=== PATIENT | female | born 1985 | race Caucasian/White ===

== ENCOUNTER 2022-11-04 05:48 | Outpatient (CLI) | payer OTHER ==
[~2022-11-04] VITALS: Ht 175.3 cm; Wt 74.1 kg
[2022-11-05] MEDS ORDERED: MINO100C5 PO (12:18)
[2022-11-10] MEDS ORDERED: SIME80TA16 PO (07:19)
[2022-11-10] MEDS ORDERED: HYDR-34 PO (07:19)
[2022-11-10] MEDS ORDERED: DOCU100C37 PO (07:19)
[2022-11-10] MEDS ORDERED: IBUP-844 PO (07:19)
== END 2022-11-05 12:36 | disposition home or self-care (01) ==
LOC: PREOP 05:48
PROVIDERS: ATTEND Obstetrics & Gynecology
DX: Z01.818 Encounter for other preprocedural examination (principal)

== ENCOUNTER 2022-11-10 06:01 | Day surgery (SDC) | payer OTHER ==
[2022-11-10] VITALS (10 sets, daily range): BP systolic 117–137; BP diastolic 69–81
[~2022-11-10] VITALS: Ht 175.2 cm; Wt 74.1 kg
[~2022-11-10 06:01] MED LIST: MINO100C5 PO
[2022-11-10] MEDS ORDERED: metroNIDAZOLE 500MG/100ML IVPB 100 ML IV ONE (06:45)
[2022-11-10] MEDS ORDERED: LACTATED RINGERS 1,000 ML IV PRN (06:45)
[2022-11-10] MEDS ORDERED: ceFAZolin INJECTION 2,000 MG in NS (IVPB) 50 ML IV ONE (06:45)
[2022-11-10] MEDS ORDERED: BUPIVACAINE 0.25% 30 ML (SENSORCAINE) VIAL ONE (06:55)
[2022-11-10 06:56] LABS: BASOPHILS % (AUTO) 1 % (0-10); EOSINOPHILS # (AUTO) 0.1 10^3/uL (0.0-0.3); EOSINOPHILS % (AUTO) 3 % (0-10); HEMATOCRIT 41 % (35-52); HEMOGLOBIN 14.5 g/dL (11.5-16.0); LYMPHOCYTES # (AUTO) 1.3 10^3/uL (1.0-4.0); LYMPHOCYTES % (AUTO) 26 % (12-44); MEAN CORPUSCULAR HEMOGLOBIN 32 pg (25-34); MEAN CORPUSCULAR HGB CONC 36 g/dL (32-36); MEAN CORPUSCULAR VOLUME 91 fL (80-99); MEAN PLATELET VOLUME 10.6 fL (9.0-12.2); MONOCYTES # (AUTO) 0.4 10^3/uL (0.0-1.0); MONOCYTES % (AUTO) 9 % (0-12); NEUTROPHILS # (AUTO) 3.1 10^3/uL (1.8-7.8); NEUTROPHILS % (AUTO) 62 % (42-75); PLATELET COUNT 160 10^3/uL (130-400)
--- NOTE | 2022-11-10 07:13 | Progress Note-Pre Operative ---
Pre-Operative Progress Note Date of Available H&P: Nov 10, 2022 Date H&P Reviewed: Nov 10, 2022 Time H&P Reviewed: 07:05 History & Physical: H&P Reviewed, Patient Examed, No changes noted Pre-Operative Diagnosis: Recurrent cervical dysplasia ANIBAL PULIDO DO Nov 10, 2022 07:13
[2022-11-10] MEDS ORDERED: HYDROcodone/APAP 7.5 MG/325 MG (LORTAB, LORCET PLUS) TABLET PO PRN (07:15)
[2022-11-10] MEDS ORDERED: BENZOCAINE LOZENGES 1 EACH LOZENGE MM PRN (07:15)
[2022-11-10] MEDS ORDERED: ZOLPIDEM 5 MG (AMBIEN) TAB PO PRN (07:15)
[2022-11-10] MEDS ORDERED: ANTACID SUSP 30 ML UDC (MYLANTA) PO PRN (07:15)
[2022-11-10] MEDS ORDERED: SIMETHICONE 80 MG (MYLICON) CHEW PO PRN (07:15)
[2022-11-10] MEDS ORDERED: KETOROLAC 30 MG/ML VIAL IVP PRN (07:15)
[2022-11-10] MEDS ORDERED: ONDANSETRON 4 MG/2 ML (SDV) Z0FRAN IV PRN (07:15)
[2022-11-10] MEDS ORDERED: DOCUSATE SODIUM 100 MG (COLACE) CAP PO PRN (07:15)
--- NOTE | 2022-11-10 07:16 | Discharge Inst-Women's Service ---
Discharge Inst-Women's Serv Depart Medication/Instructions New, Converted or Re-Newed RX: Transmitted to Pharmacy Problems Reviewed?: Yes Consults/Follow Up Additional Follow Up: Yes Orders/Referrals Dr. Roque in 7-10 days and in 8 weeks Activity Activity: Activity as Tolerated Driving Instructions: No Driving for 1 Week NO SMOKING: NO SMOKING Nothing Inside Vagina: No Douching, No [place], No Tampons Diet Discharge Diet: No Restrictions Symptoms to Report to : Bleeding Excessive, Pain Increased, Fever Over 101 Degrees F, Vaginal Bleeding Increase, Questions/Concerns For Any Problems or Questions: Contact Your Physician Skin/Wound Care Infection Signs and Symptoms: Increased Redness, Foul Odor of Wound, Increased Drainage, Skin Itchy or Has a Rash, Increased Swelling, Temperature Above 101 F Operative Area Clean and Dry: Keep Incision Clean/Dry Stitches/Ian/Dermabond: Dermabond, Care of Stitches Bathing Instructions: ANIBAL Tejada DO Nov 10, 2022 07:16
[2022-11-10] MEDS ORDERED: SIME80TA16 PO (07:19)
[2022-11-10] MEDS ORDERED: IBUP-844 PO (07:19)
[2022-11-10] MEDS ORDERED: DOCU100C37 PO (07:19)
[2022-11-10] MEDS ORDERED: HYDR-34 PO (07:19)
[2022-11-10] MEDS ORDERED: fentaNYL INJ 100 MCG/2 ML AMP ONE ×2 (07:20→08:19)
[2022-11-10] MEDS ORDERED: MIDAZOLAM 2 MG/2 ML (VERSED) VIAL ONE (07:20)
[2022-11-10] MEDS ORDERED: BUPIVACAINE 0.25% 30 ML (SENSORCAINE) VIAL INJ ONE (07:52)
[2022-11-10] MEDS: LACTATED RINGERS 1,000 ML IV SCH ×2 (08:10→11:25)
[2022-11-10] MEDS ORDERED: ONDANSETRON 4 MG/2 ML (SDV) Z0FRAN ONE (08:17)
[2022-11-10] MEDS ORDERED: proPOfol 200 MG/20 ML (DIPRIVAN) VIAL IV ONE (08:17)
[2022-11-10] MEDS ORDERED: SEVOFLURANE (ULTANE) 15 ML INHAL SOLN ONE ×2 (08:17→09:00)
[2022-11-10] MEDS ORDERED: ROCURONIUM 10 MG/ML 5 ML SYRINGE IV ONE (08:17)
[2022-11-10] MEDS ORDERED: LIDOCAINE PF 2% 5 ML (XYLOCAINE) VIAL ONE (08:17)
[2022-11-10] MEDS ORDERED: GLYCOPYRROLATE 0.2 MG/ML (ROBINUL) 2 ML VIAL ONE (08:18)
[2022-11-10] MEDS ORDERED: NEOSTIGMINE (BLOXIVERZ ) 1 MG/1ML 10 ML VIAL ONE (08:18)
[2022-11-10] MEDS ORDERED: ONDANSETRON 4 MG/2 ML (SDV) Z0FRAN IVP PRN (09:00)
[2022-11-10] MEDS ORDERED: HYDROmorphone 2 MG/ML VIAL (DILAUDID) IV ONE (09:00)
[2022-11-10] MEDS ORDERED: HYDROmorphone 2 MG/ML VIAL (DILAUDID) ONE (09:02)
[2022-11-10] MEDS: MEPERIDINE (DEMEROL) INJ 50 MG/ML ONE ×2 (09:09→09:10)
[2022-11-10] MEDS ORDERED: MEPERIDINE (DEMEROL) INJ 50 MG/ML IVP ONE (09:15)
--- NOTE | 2022-11-10 12:26 | OPERATIVE REPORT ---
DATE OF SERVICE: 11/10/2022 PREOPERATIVE DIAGNOSIS: A 37-year-old female with recurrent cervical dysplasia. POSTOPERATIVE DIAGNOSIS: A 37-year-old female with recurrent cervical dysplasia. PROCEDURES PERFORMED: Robotic-assisted total laparoscopic hysterectomy with bilateral salpingectomy. SURGEON: Alexis Pulido DO. PEDAL ASSEMBLER: Madhuri Lerma DNP, who was necessary for manipulation and retraction throughout the procedure. ANESTHESIA: General endotracheal. ESTIMATED BLOOD LOSS: Minimal. URINE OUTPUT: 400 mL clear urine at the end of procedure. FLUIDS: 1200 mL of lactated Ringer solution. FINDINGS: Grossly normal-appearing external female genitalia. Grossly normal-appearing cervix, uterus, bilateral fallopian tubes and ovaries. SPECIMEN SENT: Uterus and bilateral fallopian tubes. INDICATIONS FOR PROCEDURE: This 37-year-old female was a patient, who had sought care in my office for issues with recurrent cervical dysplasia. Throughout the year, she has undergone multiple colposcopies. She does not desire further childbearing and is becoming more and more anxious about examinations and repeat colposcopy. Given her family history of cancer, she wished to proceed with hysterectomy. The risks of the procedure were discussed with the patient versus alternatives of continued conservative management. After all of her questions were answered. Consent was obtained preoperatively. DESCRIPTION OF PROCEDURE: The patient was taken to the operating room. Once in the operating room, anesthesia was found to be adequate. She was placed in a dorsal lithotomy position, prepped and draped in a normal sterile fashion. A timeout was performed. Simeon catheter was placed using sterile technique. A weighted speculum was inserted in the patient's vagina, right angle retractor was used to visualize the cervix, grasped at 12 o'clock position using a long Allis clamp. I then placed an 0 Vicryl suture at the anterior lip of the cervix and used my retraction. The Allis clamp was removed. I then selected an 8 cm BARBARA uterine manipulator tip and a 3.5 cm colpotomy ring. I advanced the manipulator tip into the uterus, where I deployed the balloon. I advanced the colpotomy ring around the vaginal fornix, after which, excellent manipulation was appreciated on bimanual examination. I then performed a change of glove after I removed all the instruments from the patient's vagina and took my attention to the abdomen, where subcostally at the midclavicular line on the left side, I introduced a Veress needle to ensure proper placement, was confirmed using saline drop test with an opening pressure of 5 mmHg. I proceeded with CO2 insufflation using CO2 insufflation to maximum pressure of 15 mmHg, at which point I infiltrated the infraumbilical area using 0.25% Marcaine to make an 8 mm incision with a knife and correct blunt laparoscopic da Ramona camera trocar through this incision. Correct placement was confirmed using the da Ramona laparoscope. There was no evidence of damage from my entry site. A brief scan of the upper abdomen anatomy appeared to be grossly normal. I removed the Veress needle from its site and there was no active bleeding noted or evidence of damage upon the Veress entry site. I then had the patient placed in a steep Trendelenburg, where I was able to visualize all my pelvic anatomy as defined in my findings above. I placed two lateral trocars. These were both 8 mm trocars were approximately 8 cm lateral to my infraumbilical trocar. Once both of these trocars were placed under direct visualization of laparoscope, I brought in the da Ramona robot and docked in the appropriate fashion placing the SynchroSeal device in the left hand and monopolar chriss in the right hand to perform the following dissection bilaterally, staring at the uteroovarian ligament, I sealed and transected using SynchroSeal device. I then created a window in the mesosalpinx, took this laterally down the mesosalpinx, obtained fallopian tube from the surrounding blood supply. We then grasped the round ligament, which I sealed and transected using the SynchroSeal device. I then grasped the entire broad ligament, which was sealed and transected using a SynchroSeal device. I did this all the way down to the level of the lower uterine segment, at which point, I the anterior and posterior leaflets of the broad ligament; anterior leaf was taken down to the anterior vaginal fornix. Posterior leaf was taken down the posterior vaginal fornix. This allowed me to skeletonize the uterine vessels laterally, which I sealed and transected using a SynchroSeal device. I then created a colpotomy at 12 o'clock position using monopolar chriss and took this circumferentially around the vaginal fornix amputating the cervix away from the vagina and the entire specimen was removed through the vagina. I then closed the vaginal cuff using 2-0 V-Loc in a running fashion, after which, there was no active bleeding noted from a dissection plane. I then undocked the da Ramona robot and proceeded with the remainder of the case laparoscopically. I then copiously irrigated the pelvis with normal saline. Once again, there was no active bleeding noted from any of my dissection planes. I then placed Surgiflo hemostatic agent over all my planes of dissection. I had the patient taken out of steep Trendelenburg, where I removed the lateral trocars under direct visualization of laparoscope. The infraumbilical trocar was left in place to release the remainder of the insufflation and introduced 10 mL of 0.25% Marcaine in the peritoneal cavity for postoperative pain management. I then removed this trocar as well. The skin was reapproximated with 4-0 Monocryl interrupted subcuticular stitches. Dermabond was applied to the incisions. Band-Aids were placed over the incision as well. Simeon catheter was left in place. The patient tolerated the procedure well and sent to recovery area in stable condition. Lap and sponge counts were correct at the end of the procedure and instrument counts were correct as well. Two grams of Ancef and 500 mg of Flagyl were given preoperatively for infection prophylaxis. Job ID: [id number] DocumentID: [id number] Dictated Date: 11/10/2022 10:02:44 Equipment Maintenance Engineer Date: 11/10/2022 12:24:00 Dictated By: ALEXIS PULIDO DO
[2022-11-11] MEDS ORDERED: IBUPROFEN 600 MG (MOTRIN) TAB PO SCH (12:00)
--- NOTE | 2022-11-11 15:07 | Anesthesia-General Post-Op ---
General Patient Condition Mental Status/LOC: Same as Preop Cardiovascular: Satisfactory Nausea/Vomiting: Absent Respiratory: Satisfactory Pain: Controlled Complications: Absent Post Op Complications Complications None Follow Up Care/Instructions Patient Instructions None needed. Anesthesia/Patient Condition Patient Condition Patient is doing well, no complaints, stable vital signs, no apparent adverse anesthesia problems. No complications reported per nursing. JONATHAN VARGAS CRNA Nov 11, 2022 15:07
== END 2022-11-10 15:15 | disposition home or self-care (01) ==
LOC: SDC 06:01 → WS 09:45 → SDC 15:15
PROVIDERS: ATTEND Obstetrics & Gynecology
DX: D25.1 Intramural leiomyoma of uterus (principal); N80.03 Adenomyosis of the uterus; N87.1 Moderate cervical dysplasia; K66.0 Peritoneal adhesions (postprocedural) (postinfection); N81.9 Female genital prolapse, unspecified; Z28.310 Unvaccinated for COVID-19
CPT/HCPCS: 36415; 84703; 85025; 86850; 86900; 86901; 87081